=== PATIENT | female | born 2000 ===

== ENCOUNTER 2020-11-14 10:27 | Outpatient (RCR) | payer BC, MEDICAID, SELFPAY ==
[2020-11-15 11:32] VITALS: BMI 16.1
--- NOTE | 2020-11-15 13:12 | PC.ADMIT ---
Patient is a 20 year old female who is 15 weeks who self referred to the [facility] program d/t increased depression, anxiety, and PTSD sxs . Prior to admission to [facility] patient reports she was hospitalized from October 27-October 30, 2020. Prior to hospitalization patient reportedly was standing by a bridge and had thoughts to jump however she called 911 for help and was hospitalized. Patient stated she was using marijuana to cope with how she is feeling however stopped using d/t and appears to have cravings to use. Patient reports her BF is using however does not use in front of her. Patient is followed by an OBGYN at [facility] for care. She is upset with her OBGYN as she stated they will not refill her prescription for hydroxyzine that was given to her in the hospital for anxiety which she stated was effective and instead prescribed her Zoloft which she stated she has been taking for the past 5 days and stopped taking it today as she reports experiencing SE such as insomnia, nausea, heart racing, hallucinations but different from the hallucinations she usually experiences when extremely stressed and anxious). Patient is fixated on this. She described hallucinations as, blurred vision and room spinning and when looking at a person seeing only the persons face as the whole room disappears. Also reports seeing colors. Upset with her OBGYN for prescribing this medication and stopped taking her vitamin as she is scared to take anything. Patient reports she is taking a 1/2 tab of hydroxyzine even though her OBGYN does not want to prescribe this to her. Educated patient about the importance of following OBGYN instructions. Gisselle Chavez FEATHER STITCHER is aware. Educated patient about the importance of taking her vitamin as prescribed. Patient is underweight. Height 4'11 Wt 80 lbs. Stated she lost 6 lbs while in the hospital. Reports decreased appetite. Gisselle Barreto NP is also aware. Educated patient about the importance of adequate nutrition for her and the baby. 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 Patient presents with irritable anxious mood. Speech is pressured. Patient reports sleeping 6- 8 hrs. Denied SI or HI. Denied Hallucinations or paranoid thoughts at present. [ End ]
--- NOTE | 2020-11-15 13:32 | HO.PS.ADMBH ---
HPI Chief Complaint: depression Sources of Information: patient interviewed, chart reviewed and crisis/core team assessment reviewed HPI Narrative: Ms. Mahan is a 20 year-old woman who was referred by crisis to PHP due to increase anxiety, irritability, paranoia related to thinking that doctors are trying to hurt her. She reports decreased sleep. She also reports cleaning excessively. She is 3 weeks . She reports that her OB prescribed to her Sertraline but she became more agitated and stopped it. She is also very worried about side effects of medications. She denies VH/AH. She reports poor sleep, writing compulsively in journals, not able to complete tasks. She denies SI/HI. When asked to describe her mood she denies depression but reports feeling very anxious, this related to some paranoid ideas. While meeting she asks if doctors or this script writer is trying to hurt her or if just in my mind. Pt reports in the past risperidone was helpful. She also reports hydroxyzine helped with anxiety and sleep. Past Psychiatric History: Inpatient: one inpt admission at age 13- pt states it was a psychotic depression OP: none Suicide attempt: OD at age of 14. Medical Evaluation Reviewed: Yes [facility] Medical History (Updated 11/20/20 @ 15:25 by Gisselle Woodson) No known health problems Diagnostics Vital Signs (24Hr): Body Mass Index 16.1 Meds/Allergies Allergies Allergies Allergy/AdvReac Type Severity Reaction Status Date / Time No Known Allergies Allergy Verified 11/15/20 08:41 Mental Status Exam Mental Status Exam Narrative: Appearance: casually groomed, fair hygiene, in NAD Behavior: guarded, anxious Psychomotor: some restlessness noted Speech: clear, pressured rate, regular rhythm/volume, spontaneous TP: tangential TC: some paranoia, feeling restless, anxious, unable to calm herself Mood: anxious Affect:guarded, suspicious SI:none HI:none AH/VH:VH- of distorted faces Delusions:paranoia thinking doctors trying to hurt her Insight/judgment:poor x 2. Memory/cog: alert, oriented x 3. poor attention Assessment & Plan Assessment & Plan (1) Bipolar 1 disorder with moderate gonzalez: Status: Acute Code(s): F31.12 - Bipolar disorder, current episode manic without psychotic features, moderate Assessment and Plan: 1. Start Risperidone 0.5mg po BID- titrate as tolerated to therapeutic dose. 2. Start Hydroxyzine 25mg Q6h prn anxiety. We discussed overall safety of antipsychotic while . We also discussed effects of untreated mental health on . Certification I certify that partial hospital treatment is medically necessary due to the symptoms and problems resulting from the patient's mental illness and the failure to treat the patient at the partial hospital level of care would likely result in the patient requiring inpatient psychiatric care which could not be prevented at a less intensive level of care. Telehealth Telehealth Location of provider rendering services: practice address Location of patient: address on file Patient Identification confirmed using: Name, : Yes Telehealth method: video Patient verbally consented to treatment: Yes Patient verbally consented to billing insurance company: Yes Patient informed of any privacy concerns related to visit: Yes Time spent with patient (mins): 30
--- NOTE | 2020-11-16 16:10 | PC.NURSE ---
Pt called, and I spoke to her about aftercare. She agreed to a referral to [facility]. With ehr permission, I called [facility], spoke to Lupe, and put in a referral.
--- NOTE | 2020-11-20 11:41 | PC.NURSE ---
Pt emailed stating she cannot attend PHP. I called and LM asking if she meant that she cannot attend just today, or that she cannot attend PHP at all.
--- NOTE | 2020-11-20 13:19 | PC.NURSE ---
Pt called back and left a message stating she will no longer be attending PHP. I called her back and LM asking her to pls call to review discharge and aftercare plans.
== END 2020-11-14 23:55 | disposition home or self-care (01) ==
LOC: HO.PHPA 10:27
PROVIDERS: Visit Provider Psychiatry & Neurology Psychiatry
DX: F31.12 Bipolar disorder, current episode manic without psychotic features, moderate (principal)
CPT/HCPCS: 90791; 90853